=== PATIENT | female | born 1950 | race Caucasian/White ===

== ENCOUNTER → 2022-08-14 14:15 | Outpatient (BNVA) | payer MEDICARE, SELFPAY | PROVIDERS: PCP Internal Medicine; Visit Provider Hospitalist | DX: J45.909 Unspecified asthma, uncomplicated (principal); J47.9 Bronchiectasis, uncomplicated; K21.9 Gastro-esophageal reflux disease without esophagitis | CPT/HCPCS: 99202 ==

== ENCOUNTER 2023-01-28 10:50 | Outpatient (REF) | payer MEDICARE, SELFPAY ==
--- NOTE | 2023-01-28 11:46 | PFT_ITS ---
FLOWS: 1. FEV1 108% of predicted at 1.95 L. 2. FVC 107% of predicted at 2.60 L. 3. FEV1 to FVC ratio of 0.75. 4. No bronchodilator response, except in small to medium airways. LUNG VOLUMES: 1. Total lung capacity 96% of predicted at 4.27 L. 2. Residual volume 86% of predicted at 1.76 L. 3. Slow vital capacity 104% of predicted at 2.51 L. 4. Expiratory reserve volume 68% of predicted at 0.33 L. 5. Diffusion capacity is normal. IMPRESSION: No obstructive or restrictive ventilatory defect. No bronchodilator response, except in small to medium airways. Bigg Mayers MD AP/MODL / [id number]
== END 2023-01-28 10:51 | disposition home or self-care (01) ==
LOC: HO.RESP 10:50
PROVIDERS: PCP Internal Medicine; Visit Provider Hospitalist
DX: J45.909 Unspecified asthma, uncomplicated (principal)
CPT/HCPCS: 94010; 94727; 94729

== ENCOUNTER → 2023-02-17 13:47 | Outpatient (BNVA) | payer MEDICARE, SELFPAY | PROVIDERS: PCP Internal Medicine; Visit Provider Hospitalist | DX: J47.9 Bronchiectasis, uncomplicated (principal); J45.909 Unspecified asthma, uncomplicated; K21.9 Gastro-esophageal reflux disease without esophagitis | CPT/HCPCS: 99212 ==

== ENCOUNTER 2024-01-08 10:36 | Outpatient (AMB) | payer MEDICARE, SELFPAY ==
--- NOTE | 2024-01-08 10:42 | A.OFFVIS_ITS ---
Vital Signs 01/08/24 10:43 Height 5 ft Weight 150 lb 8 oz BMI 29.4 BP 138/84 Blood Pressure Location Lt brachial Position Sitting Pulse 64 Pulse Source Pulse Oximeter Pulse Oximetry (%) 100 Oxygen Delivery Method Room Air Intake Visit Reasons: asthma exacerbation Allergies Sulfa Drug Allergy (Severe, Uncoded 01/08/24 10:46) Rash HPI HPI asthma exacerbation: Details: Aleisha is a pleasant 73 year old female, never smoker, with underlying asthma, brochiectasis, and GERD. She is under the care of Dr. Espinal, last seeing him in February 2023. Today she presents for an acute visit. She initially had symptoms of chest congestion that started mid November after exposure to grandchild with URI and treated with a zpak at the end of November. COVID test negative. Unfortunately, patient continues to report chest tightness, chest congestion and persistent, with mild improvement while taking zpak, then worsening of symptoms once discontinued. She is currently using albuterol twice daily with moderate improvement, she had discontinued flovent months ago. She denies fevers or chills. [facility] Medical History (Updated 01/08/24 @ 11:08 by Mirella Sutton NP) Bronchiectasis GERD (gastroesophageal reflux disease) Asthma Social History Patient Tobacco Use Status: Never used Tobacco Review of Systems Const Denies chills, Denies excessive sweating, Denies fever(s), Denies headache(s) and Denies night sweats Eyes Denies dry eyes, Denies irritation and Denies itchy eyes ENT Reports Normal hearing present, Denies headache(s), Denies nasal congestion, Denies nasal discharge, Denies post nasal drip and Denies sore throat Card Denies chest pain, Denies chest pain at rest, Denies chest pain with activity, Denies claudication, Denies leg edema, Denies orthopnea and Denies paroxysmal nocturnal dyspnea Resp Denies excessive phlegm production, Denies pain on inspiration, Denies pain with cough, Denies stridor and Denies wheezing Musc Denies myalgias Neuro Reports Normal hearing present and Denies headache(s) Endo Denies excessive sweating Brandon/Lymph Denies lymphadenopathy Aller/Immun Denies itchy eyes, Denies seasonal rhinorrhea and Denies wheezing Physical Exam Vital Signs: BMI result Body Mass Index 29.4 Const General: cooperative, healthy appearing, comfortable, no acute distress, well developed and alert Orientation/consciousness: patient oriented x3 Limitations: no limitations HEENT Head: Yes normal to inspection, Yes normocephalic and Yes atraumatic Ears: hearing grossly normal bilaterally and external ears normal Eyes General: appearance normal, both eyes and all related structures Eyelids: Yes eyelids normal Sclerae: sclerae normal EOM: EOMs intact bilaterally Neck Neck: Yes normal visual inspection and Yes no lymphadenopathy Lymphatic: no lymphadenopathy noted Chest Other: afib Chest palpation & inspection: normal inspection of the chest Resp Other: diminished lung sounds, specifically right mid lobe compared to left. no wheezing, no rales. Effort & Inspection: normal respiratory effort, able to speak in complete sentences, no audible wheezes, no cough, no stridor, not tachypneic, no tripod positioning and no use of accessory muscles Cardio Jugular venous distension: no JVD Rate: regular rate Skin Other: warm, dry General skin exam: no rashes or lesions noted Neuro General: patient oriented x3 Cranial nerves: Yes Normal hearing present Cognition (Neuro): normal cognition Gait exam (Neuro): Normal gait present Extrem General: Yes normal to inspection, Yes capillary refill normal, Yes no clubbing, cyanosis or edema and Yes no pedal edema Psych Appearance: grossly normal and well kempt Speech and movement: Normal speech and movement present and Clear speech present Affect: normal affect Attitude: cooperative Thought process: Normal thought process present Thought content: Normal thought content present Insight: Good insight present (Psych) Judgement: Good judgement present (Psych) Assessment & Plan Assessment & Plan (1) Cough: Code(s): R05.9 - Cough, unspecified Category: Medical (2) Asthma: Code(s): J45.909 - Unspecified asthma, uncomplicated Category: Medical (3) GERD (gastroesophageal reflux disease): Code(s): K21.9 - Gastro-esophageal reflux disease without esophagitis Category: Medical (4) Bronchiectasis: Comment: based on her ct chest 2018 Code(s): J47.9 - Bronchiectasis, uncomplicated Category: Medical Plan Will treat bronchitic symptoms with cefpodoxime, as minimal improvement with zpak and worsening of symptoms. Will also send for CXR. Encouraged patient to return to using flovent 1 puff twice daily, as she has been using albuterol BID. All questions were answered and patient is in agreement of plan. Will follow up with Dr. Espinal for regularly scheduled appointment or sooner if needed. Orders: Orders XR chest 2V Today R05.9 - Cough, unspecified Medications: New cefpodoxime must administer with a meal/food 200 mg PO BID 20 tabs 0RF fluticasone propionate 110 mcg/actuation administer with spacer 1 puff inhalation BID 12 grams 3RF Coding Level of Care Code Est Pt Level 4 (98542) Diagnoses Cough R05.9 Asthma J45.909 GERD (gastroesophageal reflux disease) K21.9 Bronchiectasis J47.9
[2024-01-08 10:43] VITALS: BP 138/84; PULSE 64; O2SAT 100; BMI 29.4
== END 2024-01-08 11:13 | disposition home or self-care (01) ==
PROVIDERS: PCP Internal Medicine; Visit Provider Nurse Practitioner Family
DX: R05.9 Cough, unspecified (principal); J45.909 Unspecified asthma, uncomplicated; K21.9 Gastro-esophageal reflux disease without esophagitis; J47.9 Bronchiectasis, uncomplicated
CPT/HCPCS: 99214

== ENCOUNTER → 2024-01-08 10:36 | Outpatient (BNVA) | payer MEDICARE, SELFPAY | PROVIDERS: PCP Internal Medicine; Visit Provider Nurse Practitioner Family | DX: R05.9 Cough, unspecified (principal); J45.909 Unspecified asthma, uncomplicated; K21.9 Gastro-esophageal reflux disease without esophagitis; J47.9 Bronchiectasis, uncomplicated | CPT/HCPCS: 99212 ==

== ENCOUNTER 2024-02-29 09:56 | Outpatient (AMB) | payer MEDICARE, SELFPAY ==
--- NOTE | 2024-02-29 10:01 | MHC.OFFVIS ---
Vital Signs 02/29/24 10:02 Height 5 ft Weight 150 lb 2.157 oz BMI 29.3 Pulse 64 Pulse Source Pulse Oximeter Pulse Oximetry (%) 98 Oxygen Delivery Method Room Air Intake Visit Reasons: Asthma Logging Equipment Operator Required: No Allergies Sulfa Drug Allergy (Severe, Uncoded 02/29/24 10:04) Rash HPI Comments Details: The patient is a 73-year-old woman with a known history of asthma, bronchiectasis who has been doing well for some time. However, recently she was exposed to sick contact and started developing worsening shortness of breath and chest tightness. She was having increasing cough. Moderate severity. therefore the patient did call her primary care doctor. She was evaluated and given prednisone with improvement of her symptoms. She is back to her baseline now. She did go also on Flovent twice a day and was able to improve her symptoms. Her primary care doctor did encourage her to start the Flovent now that she is better. I do agree with that decision. She also has a rescue inhaler that she has not required any longer. We did review previous imaging studies. She did have a CT scan of the chest back in 2019 at [facility] demonstrating no significant disease. She does have some bronchiectatic airways. Otherwise she also has evidence of a very small hiatal hernia. It may be sliding in a now. She does monitor closely her reflux symptoms. She sleeps elevated and this does help. Otherwise clinically the patient is doing well she is back to her baseline. 02/17/2023 the patient is here for pulmonary follow-up visit. The patient overall doing well. She has had a rescue inhaler that she uses as needed. Typically less than 2 times a week. She has not required the Flovent. The patient did have pulmonary function studies demonstrating small airways disease consistent with diagnosis of asthma. Denies any significant mucus production. The patient does have some bronchiectatic airways but nothing significant at this time. 02/29/2024 the patient is here for a pulmonary follow-up visit. The patient overall is doing well. The patient did have an episode of a viral sickness. She did have positive sick contact with grandchildren. The patient started developing worsening cough shortness of breath chest tightness. She did go to her primary care ordered a course of Z-Bradley. The patient was no better and she did call the office and she was seen in the office were sick visit. She was given additional antibiotics and prednisone. The patient continue with current respiratory therapy. She has been using the Flovent. The Flovent however is not covered and she had to pay a good amount of money 4. She is wondering if there has an alternative. The patient did have a couple x-rays at [facility] which I personally reviewed. There appeared to be a interval worsening of the right mid or right infrahilar area with some slight airspace disease suggesting a component of bronchopneumonia. The patient also has end-stage bronchiectasis which can result in significant mucus plugging in that area. However, she is feeling better now she is back to her baseline. A prescribed Symbicort at this time and she can use that instead of the Flovent no further imaging studies needed at this time. The patient has any worsening symptoms she will call the office. Otherwise follow-up in a year's time. [facility] Medical History (Updated 02/29/24 @ 10:11 by Gavin Espinal MD) Bronchiectasis GERD (gastroesophageal reflux disease) Asthma Social History Patient Tobacco Use Status: Never used Tobacco Review of Systems Const Denies fever(s) Eyes Denies change in vision ENT Denies change in voice Card Denies chest pain Resp Reports cough and Denies wheezing GI Reports dyspepsia Musc Reports no additional complaints Skin/Breast Denies rash Neuro Reports no additional complaints Endo Denies flushing Brandon/Lymph Denies easy bleeding and Denies easy bruising Aller/Immun Denies wheezing Physical Exam Vital Signs: Last Vital Signs Pulse 64 02/29/24 10:02 Pulse Ox 98 02/29/24 10:02 Oxygen Delivery Method Room Air 02/29/24 10:02 BMI result Body Mass Index 29.3 Const General: comfortable HEENT Head: Yes atraumatic Neck Neck: Yes supple Chest Chest palpation & inspection: normal inspection of the chest Resp Effort & Inspection: normal respiratory effort Auscultation: clear to auscultation bilaterally, no rales, no rhonchi and no wheezes Cardio Rate: regular rate Rhythm: regular rhythm Heart sounds: S1 normal heart sound present and S2 normal heart sound present GI Auscultation: normal bowel sounds Extrem General: Yes no clubbing, cyanosis or edema Assessment & Plan Assessment & Plan (1) Asthma: Code(s): J45.909 - Unspecified asthma, uncomplicated Category: Medical Qualifiers: Asthma complication type: uncomplicated Asthma persistence: persistent Asthma severity: moderate Qualified Code(s): J45.40 - Moderate persistent asthma, uncomplicated (2) GERD (gastroesophageal reflux disease): Code(s): K21.9 - Gastro-esophageal reflux disease without esophagitis Category: Medical Qualifiers: Esophagitis presence: without esophagitis Qualified Code(s): K21.9 - Gastro-esophageal reflux disease without esophagitis (3) Bronchiectasis: Comment: based on her ct chest 2019 Code(s): J47.9 - Bronchiectasis, uncomplicated Category: Medical Qualifiers: Bronchiectasis type: uncomplicated Qualified Code(s): J47.9 - Bronchiectasis, uncomplicated Plan continue MITCHELL as needed start Symbicort consider CPT with acapella valve if worsening congestion F/U 12 months Medications: New budesonide-formoterol 160-4.5 mcg/actuation (Symbicort) 2 puffs inhalation BID 90 days 3 ea 3RF J44.89 - Other specified chronic obstructive pulmonary disease budesonide-formoterol 160-4.5 mcg/actuation (Symbicort) 2 puffs inhalation BID 3 ea 3RF 90 days J44.89 - Other specified chronic obstructive pulmonary disease Coding Level of Care Code Est Pt Level 4 (98232) Diagnoses Moderate persistent asthma without complication J45.40 Asthma complication type: uncomplicated Asthma persistence: persistent Asthma severity: moderate Gastroesophageal reflux disease without esophagitis K21.9 Esophagitis presence: without esophagitis Bronchiectasis without complication J47.9 Bronchiectasis type: uncomplicated Time Spent (min) 17
[2024-02-29 10:02] VITALS: PULSE 64; O2SAT 98; BMI 29.3
== END 2024-02-29 10:27 | disposition home or self-care (01) ==
PROVIDERS: PCP Internal Medicine; Visit Provider Hospitalist
DX: J45.40 Moderate persistent asthma, uncomplicated (principal); K21.9 Gastro-esophageal reflux disease without esophagitis; J47.9 Bronchiectasis, uncomplicated
CPT/HCPCS: 99214

== ENCOUNTER → 2024-02-29 09:56 | Outpatient (BNVA) | payer MEDICARE, SELFPAY | PROVIDERS: PCP Internal Medicine; Visit Provider Hospitalist | DX: J45.40 Moderate persistent asthma, uncomplicated (principal); J47.9 Bronchiectasis, uncomplicated; K21.9 Gastro-esophageal reflux disease without esophagitis | CPT/HCPCS: 99212 ==

== ENCOUNTER 2025-02-16 14:18 | Outpatient (AMB) | payer MEDICARE, SELFPAY ==
--- NOTE | 2025-02-16 14:29 | MHC.OFFVIS ---
Vital Signs 02/16/25 14:30 Height 5 ft Weight 165 lb 5.547 oz BMI 32.3 BP 142/70 H Blood Pressure Location Lt brachial Position Sitting Pulse 78 Pulse Source Pulse Oximeter Pulse Oximetry (%) 98 Oxygen Delivery Method Room Air Intake Visit Reasons: Asthma Clinical Molecular Geneticist Required: No Accompanied by: Self / Same As Patient Allergies Sulfa Drug Allergy (Severe, Uncoded 02/29/24 10:04) Rash HPI Comments Details: The patient is a 74-year-old woman with a known history of asthma, bronchiectasis who has been doing well for some time. However, recently she was exposed to sick contact and started developing worsening shortness of breath and chest tightness. She was having increasing cough. Moderate severity. therefore the patient did call her primary care doctor. She was evaluated and given prednisone with improvement of her symptoms. She is back to her baseline now. She did go also on Flovent twice a day and was able to improve her symptoms. Her primary care doctor did encourage her to start the Flovent now that she is better. I do agree with that decision. She also has a rescue inhaler that she has not required any longer. We did review previous imaging studies. She did have a CT scan of the chest back in 2019 at [facility] demonstrating no significant disease. She does have some bronchiectatic airways. Otherwise she also has evidence of a very small hiatal hernia. It may be sliding in a now. She does monitor closely her reflux symptoms. She sleeps elevated and this does help. Otherwise clinically the patient is doing well she is back to her baseline. 02/17/2023 the patient is here for pulmonary follow-up visit. The patient overall doing well. She has had a rescue inhaler that she uses as needed. Typically less than 2 times a week. She has not required the Flovent. The patient did have pulmonary function studies demonstrating small airways disease consistent with diagnosis of asthma. Denies any significant mucus production. The patient does have some bronchiectatic airways but nothing significant at this time. 02/29/2024 the patient is here for a pulmonary follow-up visit. The patient overall is doing well. The patient did have an episode of a viral sickness. She did have positive sick contact with grandchildren. The patient started developing worsening cough shortness of breath chest tightness. She did go to her primary care ordered a course of Z-Bradley. The patient was no better and she did call the office and she was seen in the office were sick visit. She was given additional antibiotics and prednisone. The patient continue with current respiratory therapy. She has been using the Flovent. The Flovent however is not covered and she had to pay a good amount of money 4. She is wondering if there has an alternative. The patient did have a couple x-rays at [facility] which I personally reviewed. There appeared to be a interval worsening of the right mid or right infrahilar area with some slight airspace disease suggesting a component of bronchopneumonia. The patient also has end-stage bronchiectasis which can result in significant mucus plugging in that area. However, she is feeling better now she is back to her baseline. A prescribed Symbicort at this time and she can use that instead of the Flovent no further imaging studies needed at this time. The patient has any worsening symptoms she will call the office. Otherwise follow-up in a year's time. 02/16/2025 the patient is here for pulmonary follow-up visit. The patient overall has been doing well. She had 1 exacerbation in the winter time after having a cold and it did improve and she did not need any significant amount of medicine. She did try the Symbicort but she did not like it as it caused her to had adverse effects would runny nose and other congestion. When she stopped the symptoms went away. Her primary care doctor placed her on Flovent HFA she actually did very well on that. Should also use albuterol along with. Although now is denied. I will send her fluticasone propionate was is the basic generic Flovent to the pharmacy. It should be as effective. The patient will use it as prescribed. If we can not get her approved then will talk in figure out what other alternatives we can try. As far as imaging studies last chest x-ray was back in 2023 which was without any acute disease. Nothing to follow. The patient also had her vaccines updated. She is going to make sure about the Tdap and she also needs to make sure about the RSV. [facility] Medical History (Updated 02/29/24 @ 10:11 by Gavin Espinal MD) Bronchiectasis GERD (gastroesophageal reflux disease) Asthma Social History Patient Tobacco Use Status: Never used Tobacco Review of Systems Const Denies fever(s) Eyes Denies change in vision ENT Denies change in voice Card Denies chest pain Resp Reports cough and Denies wheezing GI Reports dyspepsia Musc Reports no additional complaints Skin/Breast Denies rash Neuro Reports no additional complaints Endo Denies flushing Brandon/Lymph Denies easy bleeding and Denies easy bruising Aller/Immun Denies wheezing Physical Exam Vital Signs: Last Vital Signs Pulse 78 02/16/25 14:30 BP 142/70 H 02/16/25 14:30 Pulse Ox 98 02/16/25 14:30 Oxygen Delivery Method Room Air 02/16/25 14:30 BMI result Body Mass Index 32.3 Const General: comfortable HEENT Head: Yes atraumatic Neck Neck: Yes supple Chest Chest palpation & inspection: normal inspection of the chest Resp Effort & Inspection: normal respiratory effort Auscultation: clear to auscultation bilaterally, no rales, no rhonchi and no wheezes Cardio Rate: regular rate Rhythm: regular rhythm Heart sounds: S1 normal heart sound present and S2 normal heart sound present GI Auscultation: normal bowel sounds Extrem General: Yes no clubbing, cyanosis or edema Assessment & Plan Assessment & Plan (1) Asthma: Code(s): J45.909 - Unspecified asthma, uncomplicated Category: Medical Qualifiers: Asthma severity: moderate Asthma persistence: persistent Asthma complication type: uncomplicated Qualified Code(s): J45.40 - Moderate persistent asthma, uncomplicated (2) GERD (gastroesophageal reflux disease): Code(s): K21.9 - Gastro-esophageal reflux disease without esophagitis Category: Medical Qualifiers: Esophagitis presence: without esophagitis Qualified Code(s): K21.9 - Gastro-esophageal reflux disease without esophagitis (3) Bronchiectasis: Comment: based on her ct chest 2019 Code(s): J47.9 - Bronchiectasis, uncomplicated Category: Medical Qualifiers: Bronchiectasis type: uncomplicated Qualified Code(s): J47.9 - Bronchiectasis, uncomplicated Plan continue MITCHELL as needed stop Symbicort start generic Flovent HFA consider CPT with acapella valve if worsening congestion F/U 12 months Medications: New fluticasone propionate 110 mcg/actuation 2 puffs inhalation BID 36 grams 3RF 90 days Coding Level of Care Code Est Pt Level 4 (73481) Diagnoses Moderate persistent asthma without complication J45.40 Asthma severity: moderate Asthma persistence: persistent Asthma complication type: uncomplicated Gastroesophageal reflux disease without esophagitis K21.9 Esophagitis presence: without esophagitis Bronchiectasis without complication J47.9 Bronchiectasis type: uncomplicated Time Spent (min) 16
[2025-02-16 14:30] VITALS: BP 142/70; PULSE 78; O2SAT 98; BMI 32.3
== END 2025-02-16 15:20 | disposition home or self-care (01) ==
LOC: HO.HPS 14:19
PROVIDERS: PCP Internal Medicine; Visit Provider Hospitalist
DX: J45.40 Moderate persistent asthma, uncomplicated (principal); K21.9 Gastro-esophageal reflux disease without esophagitis; J47.9 Bronchiectasis, uncomplicated
CPT/HCPCS: 99214

== ENCOUNTER → 2025-02-16 14:18 | Outpatient (BNVA) | payer MEDICARE, SELFPAY | PROVIDERS: PCP Internal Medicine; Visit Provider Hospitalist | DX: J45.40 Moderate persistent asthma, uncomplicated (principal); J47.9 Bronchiectasis, uncomplicated; K21.9 Gastro-esophageal reflux disease without esophagitis | CPT/HCPCS: 99212 ==